=== PATIENT | female | born 2000 | race Caucasian/White ===

== ENCOUNTER → 2021-04-12 14:23 | Outpatient (CLI) | payer OTHER, SELFPAY ==
--- NOTE | 2021-04-12 14:31 | US_ITS ---
STUDY: THYROID ULTRASOUND REASON FOR EXAM: Female, 20 years old. SWALLOWING DIFFICULTY TECHNIQUE: Ultrasound evaluation of the thyroid was performed with real-time and static taylor-scale imaging. COMPARISON: None. FINDINGS: RIGHT LOBE: The right lobe of the thyroid gland measures 4.9 cm x 1.4 cm x 1.3 cm. There is a heterogeneous echotexture. There is a 6 mm x 6 mm x 3 mm hypoechoic solid nodule in the midpole of the right lobe of the thyroid. LEFT LOBE: The left lobe of the thyroid gland measures 4.7 cm x 1.2 cm x 1.5 cm. There is a heterogeneous echotexture. There are no demonstrated solid, cystic or complex lesions. ISTHMUS: The isthmus measures 2 mm. The regional lymph nodes are normal. US/Thyroid IMPRESSION: Heterogeneous appearance of both lobes of the thyroid gland. 6 mm x 6 mm x 3 mm hypoechoic solid nodule in the midpole of the right thyroid. Electronically Signed: David Ma MD at 15:38 EDT , Service support ,
== END ==
PROVIDERS: PCP Nurse Practitioner; Referring Provider Nurse Practitioner; Visit Provider Nurse Practitioner
DX: R13.10 Dysphagia, unspecified (principal)
CPT/HCPCS: 76536